=== PATIENT | female | born 1950 | race Caucasian/White ===

== ENCOUNTER 2022-11-13 13:49 | Outpatient (CLI) | payer MEDICARE, OTHER, SELFPAY ==
[2022-11-13 17:57] LABS: Chloride* 104 mmol/L (96-114); Potassium* 4.7 mmol/L (3.6-5.1); Sodium* 141 mmol/L (135-149)
[2022-11-13 17:59] LABS: Estimated Glomerular Filt Rate 61 ml/min
[2022-11-13 18:00] LABS: Blood Urea Nitrogen* 19 mg/dL (7-30); Carbon Dioxide* 33 mmol/L (20-32); Glucose* 96 mg/dL (60-115)
[2022-11-13 18:01] LABS: Calcium* 9.7 mg/dL (8.4-10.6)
== END 2022-11-13 13:50 | disposition home or self-care (01) ==
PROVIDERS: Visit Provider Student in an Organized Health Care Education/Training Program
DX: R05.9 Cough, unspecified (principal)
CPT/HCPCS: 80048

== ENCOUNTER 2025-02-16 07:45 | Outpatient (RCR) | payer MEDICARE, OTHER, SELFPAY | END 2025-05-18 15:12 | disposition home or self-care (01) | PROVIDERS: Visit Provider Physician Assistant | DX: R42 Dizziness and giddiness (principal); Z87.898 Personal history of other specified conditions; R26.81 Unsteadiness on feet; Z51.89 Encounter for other specified aftercare | CPT/HCPCS: 97112; 97161 ==